=== PATIENT | male | born 1975 | race Caucasian/White ===

== ENCOUNTER 2022-10-02 01:51 | Emergency (ER) | payer MEDICAID ==
[~2022-10-02] VITALS: Ht 182.8 cm; Wt 142.9 kg
[2022-10-02 02:23] LABS: BASO # 0.1 10*3/uL (0.0-0.1); BASO % 0.4 % (0.0-1.0); EOS # 0.5 10*3/uL (0.0-0.4); EOS % 2.9 % (1.0-4.0); HEMATOCRIT 41.4 % (42.0-52.0); LYMPH # 2.4 10*3/uL (1.3-4.4); LYMPH % 15.3 % (27.0-41.0); MEAN CELL VOLUME 88.7 fl (80.0-94.0); MEAN CORPUSCULAR HGB 28.9 pg (27.0-31.0); MEAN CORPUSCULAR HGB CONC 32.6 g/dl (33.0-37.0); MEAN PLATELET VOLUME 9.1 fl (9.6-12.3); MONO # 1.3 10*3/uL (0.1-1.0); MONO % 8.4 % (3.0-9.0); NEUT # 11.5 10*3/uL (2.3-7.9); NEUT % 72.6 % (47.0-73.0); PLATELET COUNT AUTOMATED 288 10*3/uL (130-400); RED BLOOD COUNT 4.67 10*6/uL (4.50-5.90); RED CELL DISTRI WIDTH 13.1 % (0-14.5); WHITE BLOOD COUNT 15.9 10*3/uL (4.8-10.8)
[2022-10-02 02:37] LABS: BUN 13 mg/dl (9-23); CHLORIDE 104 mmol/L (98-107)
[2022-10-02] MEDS ORDERED: PREDNISONE20 M1 PO (04:40)
== END 2022-10-02 04:43 | disposition home or self-care (01) ==
LOC: ED 01:51
PROVIDERS: Internal Medicine
DX: J02.8 Acute pharyngitis due to other specified organisms (principal); D72.829 Elevated white blood cell count, unspecified; Z91.040 Latex allergy status